=== PATIENT | female | born 1990 | race African-American/Black ===

== ENCOUNTER 2017-04-22 18:08 | Emergency (ER) | payer OTHER ==
[2017-04-22 18:37] VITALS: BP 133/61; PULSE 99; TEMP 97.7; BMI 32.6
[2017-04-22] MEDS ORDERED: ACETAMINOPHEN 325 MG TABLET (FP) PO ONE (19:01)
[2017-04-22] MEDS ORDERED: AMOX TR/POT CLAV 875MG/125MG TABLETS (FP) PO ONE (19:01)
[2017-04-22] MEDS ORDERED: DIPHTH,PERTUSS(ACELL),TET 0.5 ML DISP.SYRIN IM ONE (19:01)
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
[2017-04-22] MEDS ORDERED: ACETAMINOPHEN 325 MG TABLET (FP) ONE (19:05)
[2017-04-22] MEDS ORDERED: AMOX TR/POT CLAV 875MG/125MG TABLETS (FP) ONE (19:06)
== END 2017-04-22 19:31 | disposition home or self-care (01) ==
LOC: JERFT 18:08
PROC: 3E0234Z Introduction of Serum, Toxoid and Vaccine into Muscle, Percutaneous Approach (ICD-10-PCS; principal; 2017-04-22)
DX: S21.052A Open bite of left breast, initial encounter (principal); S09.8XXA Other specified injuries of head, initial encounter; Y04.1XXA Assault by human bite, initial encounter; Y93.89 Activity, other specified; Y92.480 Sidewalk as the place of occurrence of the external cause
CPT/HCPCS: 90471; 90715; 99281-25

== ENCOUNTER 2017-08-14 12:15 | Emergency (ER) | payer OTHER ==
[2017-08-14 12:40] VITALS: BP 130/68; PULSE 75; TEMP 97.7; BMI 33.4
[2017-08-14] MEDS ORDERED: NAPROXEN 500 MG TABLET (FP) PO ONE (12:55)
[2017-08-14] MEDS ORDERED: NAPROXEN 500 MG TABLET (FP) ONE (12:56)
--- NOTE | 2017-08-14 12:58 | PDOC ---
History of Present Illness - General Chief Complaint: Edema Stated Complaint: LEFT UPPER CHEST & ARMPIT SWELLING Time Seen by Provider: 08/14/17 12:31 History Source: Patient Exam Limitations: No Limitations - History of Present Illness Initial Comments: 08/14/17 12:58 26-year-old female no medical history presents with left anterior shoulder discomfort since this morning. Patient thinks she had slept on her arm unusual. States that she feels some pain along her proximal major particular worse with movements and palpation. Denies numbness or weakness. Denies any trauma to the area. Past History - Past Medical History Allergies/Adverse Reactions: Allergies Allergy/AdvReac Type Severity Reaction Status Date / Time No Known Allergies Allergy Verified 08/14/17 12:27 Home Medications: Ambulatory Orders Naproxen [Naprosyn -] 500 mg PO BID PRN #14 tablet 08/14/17 Asthma: No Cancer: No Cardiac Disorders: No Diabetes: No HTN: No Seizures: No Thyroid Disease: No - Reproductive History (#): 4 Para: 1 Therapeutic (s) & number: Yes (2) Spontaneous : 2 - Immunization History Immunization Up to Date: Yes - Suicide/Smoking/Psychosocial Hx Smoking History: Never smoked Have you smoked in the past 12 months: No Hx Alcohol Use: Yes (OCCASIONAL) Drug/Substance Use Hx: No Substance Use Type: None Hx Substance Use Treatment: No Review of Systems - Review of Systems Able to Perform ROS?: Yes Comments:: 08/14/17 12:59 GENERAL/CONSTITUTIONAL: No fever, weakness. HEAD, EYES, EARS, NOSE AND THROAT: No change in vision. No ear pain or discharge. No sore throat. CARDIOVASCULAR: No chest pain or shortness of breath. RESPIRATORY: No cough, wheezing, or hemoptysis. GASTROINTESTINAL: No abdominal pain, nausea, vomiting, diarrhea, or decreased PO intolerance. GENITOURINARY: No dysuria, frequency, or change in urination. MUSCULOSKELETAL: No joint or muscle swelling or pain. No neck or back pain. SKIN: No rash NEUROLOGIC: No headache, vertigo, loss of consciousness, or change in strength/ sensation. ENDOCRINE: No increased thirst. No abnormal weight change. HEMATOLOGIC/LYMPHATIC: No anemia, easy bleeding, or history of blood clots. ALLERGIC/IMMUNOLOGIC: No hives or skin allergy. MSK: +left shoulder pain *Physical Exam - Vital Signs Last Vital Signs Temp Pulse Resp BP Pulse Ox 97.7 F 75 15 130/68 98 08/14/17 12:15 08/14/17 12:15 08/14/17 12:15 08/14/17 12:15 08/14/17 12:15 - Physical Exam Comments: 08/14/17 12:59 GENERAL: Awake, alert, and fully oriented, in no acute distress. HEAD: No signs of trauma EYES: PERRLA, EOMI, sclera anicteric, conjunctiva clear ENT: Auricles normal inspection, hearing grossly normal, nares patent, oropharynx clear without exudates. NECK: Normal ROM, supple, no lymphadenopathy, JVD, or masses EXTREMITIES: Normal range of motion, no edema. No clubbing or cyanosis. No cords, erythema, or tenderness. LUE: 2+ radial pulse. Sensation intact throughout the median/radian/ulnar nerve/ deltoid. FROM Left shoulder. TTP overlying the lateral proximal pec major, reproducible with movements. No gross deformities appreciated. NEUROLOGICAL: Cranial nerves II through XII grossly intact. Normal speech, normal gait SKIN: Warm, Dry, normal turgor, no rashes or lesions noted. Medical Decision Making - Medical Decision Making 08/14/17 13:01 Vital Signs Temp Pulse Resp BP Pulse Ox 97.7 F 75 15 130/68 98 08/14/17 12:15 08/14/17 12:15 08/14/17 12:15 08/14/17 12:15 08/14/17 12:15 This is likely muscle skeletal and/or tendinitis. NSAIDs, ice, stretching. Follow-up with orthopedics if symptoms are persistent. *DC/Admit/Observation/Transfer Diagnosis at time of Disposition: Shoulder pain, left Qualifiers: Chronicity: acute Qualified Code(s): M25.512 - Pain in left shoulder - Discharge Dispostion Disposition: HOME Condition at time of disposition: Good Admit: No - Prescriptions Prescriptions: Naproxen [Naprosyn -] 500 mg PO BID PRN #14 tablet PRN Reason: Pain - Referrals Referrals: Ed Hansen MD [Primary Care Provider] - Swapnil Kowalski MD [Staff Physician] - - Patient Instructions Printed Discharge Instructions: DI for Shoulder Pain, Shoulder Tendinopathy Additional Instructions: Please take 500 mg of naproxen every 12 hours needed for pain. Ice to improve the symptoms. If your symptoms are persistent for more than 1-2 weeks, please make an appointment with orthopedist. Call to schedule appointment.
== END 2017-08-14 13:02 | disposition home or self-care (01) ==
LOC: FER 12:15
DX: M25.512 Pain in left shoulder (principal)
CPT/HCPCS: 99282-25

== ENCOUNTER 2017-09-11 00:07 | Emergency (ER) | payer OTHER ==
[2017-09-11] MEDS ORDERED: diphenhydrAMINE HCL 50 MG CAPSULE PO ONE (00:23)
--- NOTE | 2017-09-11 00:27 | PDOC ---
History of Present Illness - General Chief Complaint: Redness To Affected Area Stated Complaint: BITES ON LEGS Time Seen by Provider: 09/11/17 00:12 History Source: Patient Exam Limitations: No Limitations - History of Present Illness Initial Comments: 09/11/17 00:23 This is a 26-year-old female who comes in complaining of bug bites on her inner thighs bilateral times this evening. Patient said she was outside but wearing long pants. Patient said the bites are itchy red and swollen. Patient denies any other complaints. Patient denies any shortness of breath or rashes. PAST MEDICAL HISTORY: no significant history PAST SURGICAL HISTORY: no significant history FAMILY HISTORY: no pertinant history SOCIAL HISTORY: Pt lives with family and is employed. MEDICATIONS: reviewed ALLERGIES: As per nursing notes Review of Systems General: No fevers or chills, no weakness, no weight loss HEENT: No change in vision. No sore throat,. No ear pain CardioVascular: No chest pain or shortness of breath Respiratory:No cough, or wheezing. Gastrointestinal: no nausea, vomitting, diarrhea or constipation, No rectal bleeding Genitourinary: No dysuria, hematuria, or frequency Musculoskeletal: No joint or muscle pain or swelling Neurologic: No headache, vertigo, dizziness or loss of consciousness Psychiatric: nor depression Skin: Bug bites as per history of present illness Endocrine: no increased thirst or abnormal weight change Allergic: no skin or latex allergy All other systems reviewed and normal GENERAL: The patient is awake, alert, and fully oriented, in no acute distress. HEAD: Normal with no signs of trauma. EYES: Pupils equal, round and reactive to light, extraocular movements intact, sclera anicteric, conjunctiva clear. EXTREMITIES: Bilateral upper legs medially there are several bites with associated erythema and slight increase in warmth. NEUROLOGICAL: Normal speech, normal gait. PSYCH: Normal mood, normal affect. SKIN: Warm, Dry, normal turgor, no rashes or lesions noted. Assessment and plan: This is a 26-year-old female with 3 bug bites on her inner thighs bilaterally. Patient given Benadryl and told to continue the Benadryl as needed and follow- up with her primary care doctor. Past History - Past Medical History Allergies/Adverse Reactions: Allergies Allergy/AdvReac Type Severity Reaction Status Date / Time No Known Allergies Allergy Verified 08/14/17 12:27 Home Medications: Ambulatory Orders NK [No Known Home Medication] 09/11/17 Asthma: No Cancer: No Cardiac Disorders: No Diabetes: No HTN: No Seizures: No Thyroid Disease: No - Reproductive History (#): 4 Para: 1 Therapeutic (s) & number: Yes (2) Spontaneous : 2 - Immunization History Immunization Up to Date: Yes - Suicide/Smoking/Psychosocial Hx Smoking History: Never smoked Have you smoked in the past 12 months: No Hx Alcohol Use: Yes (OCCASIONAL) Drug/Substance Use Hx: No Substance Use Type: None Hx Substance Use Treatment: No *DC/Admit/Observation/Transfer Diagnosis at time of Disposition: Nonvenomous insect bite of lower leg, initial encounter - Discharge Dispostion Disposition: HOME Condition at time of disposition: Stable Admit: No - Patient Instructions Additional Instructions: You can purchase some [id number] hydrocortisone cream and put it on the area in addition to that take Benadryl one to 2 tablets as often as every 6 hours as needed. The Benadryl will make you sleepy so limited to the nighttime hours. Daily intake Claritin or Tila as directed on the bottle. Return to the emergency department immediately with ANY new, persistent or worsening symptoms. Continue any medications as previously prescribed by your physician. You should follow up with your primary doctor as soon as possible regarding today's emergency department visit. . Please make sure your doctor reviews the results of your emergency evaluation. Thank you for coming to the Emergency Department today for your care. It was a pleasure to see you today. Please note that your evaluation is INCOMPLETE until you follow-up with your doctor.
[2017-09-11 00:29] VITALS: BP 133/76; PULSE 40; TEMP 97.5; BMI 30.4
== END 2017-09-11 00:34 | disposition home or self-care (01) ==
LOC: FER 00:07
DX: S70.369A Insect bite (nonvenomous), unspecified thigh, initial encounter (principal); W57.XXXA Bitten or stung by nonvenomous insect and other nonvenomous arthropods, initial encounter; Y93.89 Activity, other specified; Y92.9 Unspecified place or not applicable
CPT/HCPCS: 99281-25

== ENCOUNTER 2017-09-15 02:09 | Emergency (ER) | payer OTHER ==
[2017-09-15 02:15] VITALS: BP 133/68; PULSE 79; TEMP 98.2; BMI 30.4
--- NOTE | 2017-09-15 02:23 | PDOC ---
History of Present Illness - General Chief Complaint: Pain, Acute Stated Complaint: PRESSURE BEHIND RIGHT EAR Time Seen by Provider: 09/15/17 02:23 History Source: Patient Exam Limitations: No Limitations - History of Present Illness Initial Comments: 09/15/17 02:28 This is a 26-year-old female who comes in complaining of some pain behind her right ear. Patient denies any fever, chills, nausea, headache or any other complaints. Patient denies any injury to the area. PAST MEDICAL HISTORY: no significant history PAST SURGICAL HISTORY: no significant history FAMILY HISTORY: no pertinant history SOCIAL HISTORY: Pt lives with family and is employed. MEDICATIONS: reviewed ALLERGIES: As per nursing notes Review of Systems General: No fevers or chills, no weakness, no weight loss HEENT: No change in vision. No sore throat,. No ear pain CardioVascular: No chest pain or shortness of breath Respiratory:No cough, or wheezing. Gastrointestinal: no nausea, vomitting, diarrhea or constipation, No rectal bleeding Genitourinary: No dysuria, hematuria, or frequency Musculoskeletal: No joint or muscle pain or swelling Neurologic: No headache, vertigo, dizziness or loss of consciousness Psychiatric: nor depression Skin: No rashes or easy bruising Endocrine: no increased thirst or abnormal weight change Allergic: no skin or latex allergy All other systems reviewed and normal GENERAL: The patient is awake, alert, and fully oriented, in no acute distress. HEAD: Normal with no signs of trauma. There is some tenderness on palpation right posterior mastoid area. There is no erythema, no increase in warmth, no swelling. The tympanic membrane on examination is normal. The throat on examination is normal. There is submandibular. EYES: Pupils equal, round and reactive to light, extraocular movements intact, sclera anicteric, conjunctiva clear. EXTREMITIES: Normal range of motion, no edema. NEUROLOGICAL: Normal speech, normal gait. PSYCH: Normal mood, normal affect. SKIN: Warm, Dry, normal turgor, no rashes or lesions noted. This is a 26-year-old female who comes in complaining of discomfort of her right mastoid area. There is no evidence of underlying infection of the ear throat or neck. There is no erythema or evidence of infection to the mastoid process. Patient was given some ibuprofen and told to follow-up with her primary care DrThiago if not improved Past History - Past Medical History Allergies/Adverse Reactions: Allergies Allergy/AdvReac Type Severity Reaction Status Date / Time No Known Allergies Allergy Verified 09/15/17 02:11 Home Medications: Ambulatory Orders NK [No Known Home Medication] 09/11/17 Asthma: No Cancer: No Cardiac Disorders: No Diabetes: No HTN: No Seizures: No Thyroid Disease: No - Reproductive History (#): 4 Para: 1 Therapeutic (s) & number: Yes (2) Spontaneous : 2 - Immunization History Immunization Up to Date: Yes - Suicide/Smoking/Psychosocial Hx Smoking History: Never smoked Have you smoked in the past 12 months: No Information on smoking cessation initiated: No Hx Alcohol Use: No Drug/Substance Use Hx: No Substance Use Type: None Hx Substance Use Treatment: No *Physical Exam - Vital Signs Last Vital Signs Temp Pulse Resp BP Pulse Ox 98.2 F 79 16 133/68 99 09/15/17 02:12 09/15/17 02:12 09/15/17 02:12 09/15/17 02:12 09/15/17 02:12 *DC/Admit/Observation/Transfer Diagnosis at time of Disposition: Posterior auricular pain of right ear - Discharge Dispostion Disposition: HOME Condition at time of disposition: Stable - Patient Instructions Additional Instructions: Tylenol or Motrin as needed for the pain Return to the emergency department immediately with ANY new, persistent or worsening symptoms. Continue any medications as previously prescribed by your physician. You should follow up with your primary doctor as soon as possible regarding today's emergency department visit. . Please make sure your doctor reviews the results of your emergency evaluation. Thank you for coming to the Emergency Department today for your care. It was a pleasure to see you today. Please note that your evaluation is INCOMPLETE until you follow-up with your doctor.
[2017-09-15] MEDS ORDERED: IBUPROFEN 600 MG TABLET (FP) PO ONE ×2 (02:28)
== END 2017-09-15 02:34 | disposition home or self-care (01) ==
LOC: FER 02:09
DX: H92.01 Otalgia, right ear (principal)
CPT/HCPCS: 99281-25

== ENCOUNTER 2018-01-24 22:01 | Emergency (ER) | payer OTHER ==
[2018-01-24 22:30] VITALS: BP 140/60; PULSE 45; TEMP 97.9; BMI 33.0
--- NOTE | 2018-01-24 23:03 | PDOC ---
History of Present Illness - General Chief Complaint: Hives Stated Complaint: HIVES/POSSIBE ALLERGIC REACTION Time Seen by Provider: 01/24/18 22:57 - History of Present Illness Initial Comments: 01/24/18 23:24 27 yo F with no significant pmh who presents with rash. Pt. reports widespread, pruitic, worsening, rash at aprox 1 hour [employer]. Denies face/eye involvement, but reports "throat itching." Symptom onset while walking around at store. Denies vision changes, CP, SOB, wheezing. No change in detergents, body wash, shampoo, emoilents, clothing. Denies N/V, F/C, abdominal pain, urinary complaints, lightheadedness, weakness, sensory changes. Denies OTC symptom management. Reports prior environmental antigen sensitivity upon allergen testing. No h/o food allergy. No EPI Pen use. Past History - Past Medical History Allergies/Adverse Reactions: Allergies Allergy/AdvReac Type Severity Reaction Status Date / Time No Known Allergies Allergy Verified 01/24/18 22:27 Home Medications: Ambulatory Orders Diphenhydramine [Benadryl 12.5 MG/5 ML Oral Solution -] 25 mg PO Q8H #15 ml MDD 3 tab 01/25/18 Prednisone [Deltasone] 40 mg PO ONCE 5 Days #10 tablet MDD 2 tab 01/25/18 Ranitidine [Zantac -] 150 mg PO DAILY 5 Days #5 tablet MDD 1 tab 01/25/18 Asthma: No Cancer: No Cardiac Disorders: No COPD: No Diabetes: No HTN: No Seizures: No Thyroid Disease: No - Reproductive History (#): 4 Para: 1 Therapeutic (s) & number: Yes (2) Spontaneous : 2 - Immunization History Immunization Up to Date: Yes - Suicide/Smoking/Psychosocial Hx Smoking History: Never smoked Have you smoked in the past 12 months: No Information on smoking cessation initiated: No Hx Alcohol Use: No Drug/Substance Use Hx: No Substance Use Type: None Hx Substance Use Treatment: No Review of Systems - Review of Systems Comments:: 01/24/18 22:59 GENERAL/CONSTITUTIONAL: No fever or chills. No weakness. HEAD, EYES, EARS, NOSE AND THROAT: No change in vision. No ear pain or discharge. No sore throat.- CARDIOVASCULAR: No chest pain or shortness of breath RESPIRATORY: No cough, wheezing, or hemoptysis. GASTROINTESTINAL: No nausea, vomiting, diarrhea or constipation. GENITOURINARY: No dysuria, frequency, or change in urination. MUSCULOSKELETAL: No joint or muscle swelling or pain. No neck or back pain. SKIN:+ rash NEUROLOGIC: No headache, vertigo, loss of consciousness, or change in strength/ sensation. ENDOCRINE: No increased thirst. No abnormal weight change HEMATOLOGIC/LYMPHATIC: No anemia, easy bleeding, or history of blood clots. ALLERGIC/IMMUNOLOGIC:+ hives. *Physical Exam - Vital Signs Last Vital Signs Temp Pulse Resp BP Pulse Ox 97.9 F 45 L 20 140/60 100 01/24/18 22:27 01/24/18 22:27 01/24/18 22:27 01/24/18 22:01/24/18 22:27 - Physical Exam Comments: 01/24/18 22:59 GENERAL: Awake, alert, and fully oriented, in no acute distress HEAD: No signs of trauma, normocephalic, atraumatic EYES: PERRLA, EOMI, sclera anicteric, conjunctiva clear ENT: Uvula and soft palate visualized. Auricles normal inspection, hearing grossly normal, nares patent, oropharynx clear without exudates. Moist mucosa NECK: Normal ROM, supple, no lymphadenopathy, JVD, or masses LUNGS: No distress, speaks full sentences, clear to auscultation bilaterally HEART: Regular rate and rhythm, normal S1 and S2, no murmurs, rubs or gallops, peripheral pulses normal and equal bilaterally. ABDOMEN: Soft, nontender, normoactive bowel sounds. No guarding, no rebound. No masses EXTREMITIES : . Normal inspection, Normal range of motion, no edema. No clubbing or cyanosis. NEUROLOGICAL: Cranial nerves II through XII grossly intact. Normal speech, normal gait, no focal sensorimotor deficits SKIN: Uritcarial rash on wrists and lower abdomen. Warm, Dry, normal turgor. Medical Decision Making - Medical Decision Making 01/24/18 23:31 27 yo F with no significant pmh who presents with widespread, pruitic, worsening , rash at aprox 1 hour [employer], while walking around store. Denies face/eye involvement, but reports "throat itching." Symptom onset while walking around at store. Denies vision changes, CP, SOB, wheezing. No change in detergents, body wash, shampoo, perfume, emoilents, clothing. Reports oral treatment of yeast infection at 600 PM today, with pill. Denies N/V, F/C, abdominal pain, urinary complaints, lightheadedness, weakness, sensory changes. Denies OTC symptom management. No h/o food allergy. No EPI Pen use. HR 44 and physical exam notable for urticarial rash on distal ext's and lower abdomen. Pt. with suspected mild allergic reaction. No evidence of resp/airway swelling or compromise. Low suspicion of anaphylaxis, with no indication of defiinitive airway management requiring intubation. 100 % O2 RA, and in NAD. ED Course: Dihenhydramine 50 mg, Ranitidine 150mg, Prednisone 60 mg. 01/24/18 23:41 01/25/18 01:35 Pt. reports improvement in rash and itching of throat. Sent benadryl, ranitidine , and prednsione to pharmacy. Patient instructed of medication use. She is stable for d/c with return precautions. *DC/Admit/Observation/Transfer Diagnosis at time of Disposition: Allergic reaction Qualifiers: Encounter type: initial encounter Qualified Code(s): T78.40XA - Allergy, unspecified, initial encounter - Discharge Dispostion Disposition: HOME Condition at time of disposition: Stable Admit: No - Referrals Referrals: Ed Hansen MD [Primary Care Provider] - - Patient Instructions Printed Discharge Instructions: DI for General Allergic Reactions Additional Instructions: Please return to the emergency department with any new or worsening symptoms or concerns. Please follow up with your primary care physician within 72 hours. Please take benadryl around Q8 hours and ranitidine daily, and Prednisone daily. - Post Discharge Activity - Attestations Physician Attestion: 01/24/18 22:59 I attest to the information provided in this note.
[2018-01-24] MEDS ORDERED: RANITIDINE HCL 150 MG TABLET (FP) PO ONE (23:20)
[2018-01-24] MEDS ORDERED: diphenhydrAMINE HCL 50 MG CAPSULE PO ONE (23:20)
[2018-01-24] MEDS ORDERED: predniSONE 20 MG TABLET (UD) PO ONE (23:20)
[2018-01-24] MEDS ORDERED: RANITIDINE HCL 150 MG TABLET (FP) ONE (23:51)
[2018-01-24] MEDS ORDERED: predniSONE 20 MG TABLET (UD) ONE (23:51)
[2018-01-24] MEDS ORDERED: diphenhydrAMINE HCL 25 MG CAPSULE (FP) PO ONE (23:51)
--- NOTE | 2018-01-25 01:40 | PDOC ---
Attending Attestation - Resident Resident Name: Jet Hernandez - ED Attending Attestation I have performed the following: I have examined & evaluated the patient, The case was reviewed & discussed with the resident, I agree w/resident's findings & plan, Exceptions are as noted - HPI HPI: 01/25/18 01:39 27yoF no PMHx, no known allergies presenst w/ acute onset of hives to wrists while shopping tonight. Also c/o "scratchy" throat without difficulty speaking/ breathing/swallowing. AF, VSS NAD OP WNL, no edema/erythema RRR CTABL + small amount of hives around b/l wrists and extending to forearm gait wnl. A&O x 3 A: 27yof w/ mild allergic reactio - pt is refusing IV, will treat with PO medications. - obs for resolution of sxs. - no indication for epi currently. - Physicial Exam PE: 01/25/18 01:40 as above - Medical Decision Making 01/25/18 01:40 as above
== END 2018-01-25 02:51 | disposition home or self-care (01) ==
LOC: JER 22:01
DX: T78.40XA Allergy, unspecified, initial encounter (principal); X58.XXXA Exposure to other specified factors, initial encounter
CPT/HCPCS: 99281-25

== ENCOUNTER 2020-05-30 23:19 | Emergency (ER) | payer OTHER ==
[2020-05-30 23:26] VITALS: BP 141/93; PULSE 85; TEMP 98.4; BMI 33.4
--- NOTE | 2020-05-30 23:35 | PDOC ---
History of Present Illness - General Chief Complaint: Pain Stated Complaint: GROIN AREA SWELLING Time Seen by Provider: 05/30/20 23:27 - History of Present Illness Initial Comments: This otherwise healthy 29-year-old woman presents with few day history of increasing pain and swelling in suprapubic area. Patient states that she waxed the area approximately 3 weeks ago. She subsequently developed ingrown hairs in the area which she attempted to pluck out. That area became increasingly swollen, red and painful. No previous history of abscess/cellulitis. She denies any difficulty in wound healing. No history of MRSA or other resistant organism infection or colonization although her son had abscess drained a few years ago which grew out MRSA. No known allergies No daily medications No smoking history/no daily alcohol or other recreational drug use Past History - Medical History Allergies/Adverse Reactions: Allergies Allergy/AdvReac Type Severity Reaction Status Date / Time No Known Allergies Allergy Verified 07/31/18 22:27 Home Medications: Ambulatory Orders Clindamycin HCl [Cleocin HCl] 300 mg PO TID #20 capsule 05/30/20 Asthma: No Cancer: No Cardiac Disorders: No COPD: No Diabetes: No HTN: No Seizures: No Thyroid Disease: No - Reproductive History (#): 4 Para: 1 Therapeutic (s) & number: Yes (2) Spontaneous : 2 - Immunization History Immunization Up to Date: Yes - Psycho-Social/Smoking History Smoking History: Never smoked Have you smoked in the past 12 months: No Review of Systems - Review of Systems Able to Perform ROS?: Yes Comments:: 12 point review of systems is negative except for what is noted in the history of present illness *Physical Exam - Vital Signs Last Vital Signs Temp Pulse Resp BP Pulse Ox 98.4 F 85 16 141/93 100 05/30/20 23:22 05/30/20 23:22 05/30/20 23:22 05/30/20 23:22 05/30/20 23:22 - Physical Exam GENERAL: Adult female, alert and oriented x3, in no acute distress HEAD: Normal with no signs of trauma. EYES: PERRLA, EOMI, sclera anicteric, conjunctiva clear. ABDOMEN:.normal bowel sounds No guarding or rebound.No masses No distention. 8 cm x 5 cm, erythematous, indurated, moderately tender area of the midline suprapubic region. Small purulent central area No significant area of fluctuance palpated; no streaking evident EXTREMITIES: Normal range of motion, no edema. No clubbing or cyanosis. No erythema, or tenderness. NEUROLOGICAL: Cranial nerves II through XII grossly intact. Normal speech. No focal neurological deficits. MUSCULOSKELETAL: Back non-tender to palpation, no CVA tenderness SKIN: Warm, Dry, normal turgor, no rashes or lesions noted except area of inflammation noted above Medical Decision Making - Medical Decision Making As noted above, is 29-year-old woman with no previous history of abscess or cellulitis presents with few day history of worsening pain/erythema/tenderness/edema of the suprapubic area. The area had been waxed and subsequent ingrown hairs had become infected. Exam as noted. The area is significantly indurated and tender without fluctuance. Small sample of purulent material obtained from central pore. This was sent for culture and sensitivity. Since the patient has a family member with MRSA, it is highly likely that she is colonized also. Patient will be started on clindamycin 300 mg 3 times a day for 1 week with first dose given here in the emergency room. Meanwhile, the patient should warm pack the area as much as possible and return here for incision and drainage if significant area of fluctuance develops or if she has increasing pain/swelling/redness/development of fever Discharge - Discharge Information Problems reviewed: Yes Clinical Impression/Diagnosis: Abscess or cellulitis of groin Condition: Stable Disposition: HOME - Additional Discharge Information Prescriptions: Clindamycin HCl [Cleocin HCl] 300 mg PO TID #20 capsule - Follow up/Referral - Patient Discharge Instructions Patient Printed Discharge Instructions: DI for Cellulitis -- Adult Additional Instructions: Clindamycin 300 mg 3 times a day for 1 week Warm pack to area for 15 minutes at least 3-4 times a day Alternate ibuprofen with acetaminophen as needed for pain Return to ER if you have worsening pain/swelling/redness/fever or drainage from area - Post Discharge Activity
[2020-05-30] MEDS ORDERED: ACETAMINOPHEN 500 MG TABLET (FP) PO ONE (23:47)
[2020-05-30] MEDS ORDERED: CLINDAMYCIN HCL 300 MG CAPSULE PO ONE (23:47)
[2020-05-30] MEDS ORDERED: CLINDAMYCIN HCL 150 MG CAPSULE (FP) ONE (23:50)
[2020-05-30] MEDS ORDERED: ACETAMINOPHEN 500 MG TABLET (FP) ONE (23:50)
== END 2020-05-31 00:03 | disposition home or self-care (01) ==
LOC: FER 23:19
DX: L03.314 Cellulitis of groin (principal)
CPT/HCPCS: 87070; 87186; 87205; 99283-25

== ENCOUNTER 2021-04-30 22:59 | Emergency (ER) | payer OTHER ==
[2021-04-30 23:09] VITALS: BP 158/91; PULSE 85; TEMP 98.6; BMI 34.7
== END 2021-05-01 00:12 | disposition home or self-care (01) ==
LOC: FER 22:59
DX: S76.812A Strain of other specified muscles, fascia and tendons at thigh level, left thigh, initial encounter (principal)
CPT/HCPCS: 99281-25

== ENCOUNTER 2022-11-08 00:11 | Emergency (ER) | payer OTHER ==
[2022-11-08] MEDS ORDERED: IBUPROFEN 600 MG TABLET (FP) PO ONE ×2 (00:18→00:21)
[2022-11-08] MEDS ORDERED: ACETAMINOPHEN 500 MG TABLET (FP) PO ONE (00:18)
[2022-11-08 00:20] VITALS: BP 133/96; PULSE 87; RESP 18; TEMP 99.2; BMI 25.8
[2022-11-08] MEDS ORDERED: ACETAMINOPHEN 325 MG TABLET (FP) ONE (00:22)
== END 2022-11-08 00:33 | disposition home or self-care (01) ==
LOC: FER 00:11
DX: J09.X2 Influenza due to identified novel influenza A virus with other respiratory manifestations (principal); R05.1 Acute cough
CPT/HCPCS: 0241U-QW; 99283-25

== ENCOUNTER 2023-10-18 15:15 | Emergency (ER) | payer OTHER ==
[2023-10-18] MEDS ORDERED: LIDOCAINE HCL 1%, 10 MG/ML (50 mL VIAL) SQ ONE (15:25)
[2023-10-18 15:26] VITALS: BP 121/73; PULSE 84; RESP 18; TEMP 98; BMI 32.5
[2023-10-18] MEDS ORDERED: LIDOCAINE HCL 1%, 10 MG/ML (20ML VIAL) ONE (15:34)
== END 2023-10-18 15:42 | disposition home or self-care (01) ==
LOC: FER 15:15
DX: A54.9 Gonococcal infection, unspecified (principal)
CPT/HCPCS: 96372; 99284-25